=== PATIENT | female | born 1950 | race Caucasian/White ===

== ENCOUNTER 2020-02-12 05:49 | Day surgery (SDC) | payer OTHER ==
[2020-02-12] MEDS ORDERED: PROPOFOL 200 MG/20 ML VIAL IV ONE (07:00)
[2020-02-12] MEDS ORDERED: LIDOCAINE 1% 10 ML VIAL INJ ONE (07:00)
[2020-02-12] MEDS ORDERED: LACTATED RINGERS 1,000 ML ONE (07:02)
[2020-02-12] MEDS ORDERED: LACTATED RINGERS 1,000 ML IVS ONE (07:35)
[2020-02-12 08:02] VITALS: O2SAT 99
[2020-02-12] MEDS ORDERED: MIDAZOLAM INJ 2 MG/2 ML VIAL ONE (08:04)
[2020-02-12] MEDS ORDERED: KETAMINE HCL 100 MG/ML VIAL ONE (08:04)
--- NOTE | 2020-02-12 09:13 | OP ---
DATE OF PROCEDURE: 02/12/20 INDICATION FOR COLONOSCOPY: 1. Rectal bleeding. 2. Hemorrhoids. PROCEDURE: 1. Complete colonoscopy. 2. Hemorrhoid band x1, separate procedure. SURGEON: Duarte Beauchamp MD ANESTHESIA: General and local. FINDINGS: The entire colonoscopy was normal without any evidence of polyps, significant diverticulosis or colitis. On retroflexion, there was an irritated fold consistent with hemorrhoid/partial prolapse of the distal rectal mucosa. When the colonoscopy was completed, the single hemorrhoid band and redundant fold on that side was banded. PROCEDURE: General anesthesia was induced in the lateral position. Digital rectal exam was normal. She did have some decreased sphincter tone and some patchoulis anus. The scope was introduced and advanced all the way to the cecum as identified by the terminal ileum and ileocecal valve as well as the appendiceal orifice. Upon careful withdrawal and examination, there were no polyps, no diverticulosis, no evidence of colitis. On retroflexion, there were minimal hemorrhoids. There was one large fold of mucosa/hemorrhoid and the scope was withdrawn. Digital rectal exam examined that area. There was no evidence of mass or tumor associated with it. The speculum was introduced and a single band placed on that proximal to the dentate line. It was able to get the majority of it into the band. I will assess her in followup and see if this takes care of her problem. She has may have had some bleeding/oozing from that partial rectal prolapse, although no evidence of complete prolapse on initial exam. She was taken to Recovery to be discharged. #[id number] cc: Harman Winston MD [facility]
[2020-02-12 09:59] VITALS: BP 122/52; TEMP 98
== END 2020-02-12 09:00 | disposition home or self-care (01) ==
LOC: AMB 05:49
PROVIDERS: ATTEND Surgery
DX: K62.5 Hemorrhage of anus and rectum (principal); K64.8 Other hemorrhoids; K21.9 Gastro-esophageal reflux disease without esophagitis; K59.00 Constipation, unspecified; J45.909 Unspecified asthma, uncomplicated; Z79.899 Other long term (current) drug therapy
CPT/HCPCS: 00811; 45378; 46221; J2250; J3490; J7120